=== PATIENT | male | born 1955 | race Caucasian/White ===

== ENCOUNTER → 2019-03-26 12:43 | Outpatient (CLI) | payer BC, SELFPAY ==
[2019-03-09 13:01] VITALS: BMI 27.9
--- NOTE | 2019-03-26 12:44 | CDU_ITS ---
Reason For Study: carotid stenosis Rt. Velocities/BP Lt. Velocities/BP Prox CCA 115.2/12.1 cm/sec. Prox CCA 125.3/15.7 cm/sec. Mid CCA 100.8/12.1 cm/sec. Mid CCA 118/13.9 cm/sec. Dist CCA 104.7/14.7 cm/sec. Dist CCA 96.1/13.9 cm/sec. Prox ICA 36.6/9.1 cm/sec. Prox ICA 46.1/10.4 cm/sec. Mid ICA 78.3/15.7 cm/sec. Mid ICA 95.1/20.4 cm/sec. Dist ICA 110.2/23.4 cm/sec. Dist ICA 94.0/21.5 cm/sec. Rt. ICA/CCA = 1.1. Lt. ICA/CCA = .8. Prox ECA 106.0/5.6 cm/sec. Prox ECA 68.0/7.6 cm/sec. Rt. Vert. 49.8/9.1 cm/sec. Lt. Vert. 67.7/16.0 cm/sec. Right Extracranial There is intimal thickening but no significant atherosclerotic plaque noted in the right common carotid artery. There is intimal thickening but no significant atherosclerotic plaque noted in the right internal carotid artery. There is intimal thickening but no significant atherosclerotic plaque noted in the right external carotid artery. Antegrade flow is noted in the right vertebral artery. Left Extracranial There is intimal thickening but no significant atherosclerotic plaque noted in the left common carotid artery. There is heterogeneous, smooth atherosclerotic plaque noted in the left internal carotid artery. There is intimal thickening but no significant atherosclerotic plaque noted in the left external carotid artery. Antegrade flow is noted in the left vertebral artery. Procedure Carotid Duplex [id number]. The exam was diagnostic. Exam performed in department. Interpretation Summary Mild (<50%) stenosis right extracranial internal carotid. Mild (<50%) stenosis left extracranial internal carotid. Flow within the vertebral arteries is antegrade bilaterally. Ordering Physician: Gennaro Lafleur Performed By: Skinny Tran RVT
--- NOTE | 2019-03-26 12:44 | ECHOD_ITS ---
Reason For Study: ARRHYTHMIA Procedure This was a 2D Doppler, Color Flow transthoracic echocardiogram. Exam performed in department. Left Ventricle Normal size and thickness. The estimated ejection fraction is 65 %. Stage 2 diastolic dysfunction. No regional wall motion abnormalities noted. Right Ventricle Mildly dilated right ventricle. Normal systolic function. Atria Normal left atrium. Normal right atrium. Normal atrial septum. Mitral Valve The mitral valve is structurally normal. No prolapse or stenosis seen. Tricuspid Valve Normal tricuspid valve. Trivial tricuspid valve insufficiency. Right ventricular systolic pressure estimated to be 44 mmHg. Mild pulmonary hypertension. Aortic Valve Normal aortic valve. Trisinus/trileaflet aortic valve. Pulmonic Valve Normal pulmonic valve. Trivial pulmonic valve insufficiency. Great Vessels Normal aortic root. Normal arch. Normal inferior vena cava. Inferior vena cava collapse with sniff. Pericardium/Pleural No pericardial effusion. MMode/2D Measurements & Calculations LVIDd: 5.2 cm IVSd: 0.80 cm Ao root diam: 3.1 cm LVIDs: 3.4 cm LVPWd: 0.94 cm RVDd: 3.8 cm FS: 35.4 % LAV(MOD-bp): 43.9 ml LVAd ap4: 28.0 cm2 SV(MOD-sp4): 52.4 ml LAV(MOD-bp) Indexed: 21.5 ml/m2 EDV(MOD-sp4): 88.3 ml LAV(MOD-sp2): 44.3 ml EDV(sp4-el): 89.6 ml LAV(MOD-sp4): 39.9 ml LVAs ap4: 15.9 cm2 ESV(MOD-sp4): 35.9 ml ESV(sp4-el): 35.9 ml EF(MOD-sp4): 59.3 % EF(sp4-el): 59.9 % SV(sp4-el): 53.7 ml LA A4 area: 16.1 cm2 LA dimension(2D): 3.6 cm RA A4 area: 17.5 cm2 Time Measurements MV dec time: 0.20 sec Doppler Measurements & Calculations MV E max lon: 66.4 cm/sec Lat Peak E' Lon: 12.3 cm/sec Med Peak E' Lon: 8.3 cm/sec MV A max lon: 98.2 cm/sec E/E' lat: 5.4 E/E' med: 8.0 MV E/A: 0.68 Ao V2 max: 166.9 cm/sec LV V1 max: 111.1 cm/sec PA V2 max: 133.0 cm/sec Ao max P.1 mmHg LV V1 max P.9 mmHg TR max lon: 310.3 cm/sec TR max P.7 mmHg Interpretation Summary The estimated ejection fraction is 65 %. Stage 2 diastolic dysfunction. Mildly dilated right ventricle. Trivial tricuspid valve insufficiency. Right ventricular systolic pressure estimated to be 44 mmHg. Mild pulmonary hypertension. There is no comparison study available. Ordering Physician: Gennaro Lafleur Referring Physician: Gennaro Lafleur Performed By: Adrienne Barajas RDCS
== END ==
PROVIDERS: Referring Provider Internal Medicine Cardiovascular Disease; Visit Provider Internal Medicine Cardiovascular Disease
DX: I47.2 Ventricular tachycardia (principal); I65.29 Occlusion and stenosis of unspecified carotid artery; I10 Essential (primary) hypertension; Z98.890 Other specified postprocedural states; E78.5 Hyperlipidemia, unspecified; I65.23 Occlusion and stenosis of bilateral carotid arteries
CPT/HCPCS: 93306; 93880

== ENCOUNTER → 2019-04-02 09:15 | Outpatient (CLI) | payer BC, SELFPAY ==
[2019-03-09 13:01] VITALS: BMI 27.9
--- NOTE | 2019-04-02 09:18 | STE_ITS ---
Reason For Study: ARRHYTHMIA-OTHER Stress Results Protocol: Esequiel Protocol Maximum Predicted HR: 155 bpm Target HR: 132 bpm % Maximum Predicted HR: 81 % DurationHeart Rate Stage (mm:ss) (bpm) BP Comment BASELINE 54 142/80 STAGE 1 3:00 105 144/62 STAGE 2 3:00 123 180/70LEFT HIP PAIN, NO SOB STAGE 3 0:15 126 / LEFT HIP PAIN, SOB RECOVERY 69 128/82 Stress Duration: 6:15 mm:ss Maximum Stress HR: 126 bpm Baseline Echocardiogram Findings The estimated ejection fraction is 65 %. Stress Echo Wall motion Data Resting WM Intermediate WM Stress WM Resting Wall Motion Wall Motion Stress No regional wall motion No regional wall motion abnormalities noted. abnormalities noted. EKG Data The baseline ECG displays normal sinus rhythm. The patient exercised according to the regular Esequiel protocol for a total duration of 6:15. The maximum heart rate attained was 125 beats per minute. This was 80% of maximum predicted heart rate. The patient exercised into stage 3 of the Esequiel protocol. During stress, there were no ST or T wave changes noted to suggest ischemia. No clinical angina was noted. Rate-pressure product of 22,500 mmHg.bpm. Interpretation Summary The estimated ejection fraction is 65 %. Normal, adequate, treadmill echocardiogram. Negative for ischemia by EKG and echocardiographic criteria. No anginal symptoms noted. Rare PVC and PACs noted. Appropriate blood pressure response to exercise. Average exercise capacity for age. Test terminated due to dyspnea. Final LVEF is 75%. No complications. Ordering Physician: Gennaro Lafleur Referring Physician: Gennaro Lafleur Performed By: Kristine Cruz, FRANCIE, RVT
== END ==
PROVIDERS: Referring Provider Internal Medicine Cardiovascular Disease; Visit Provider Internal Medicine Cardiovascular Disease
DX: I47.2 Ventricular tachycardia (principal); E78.5 Hyperlipidemia, unspecified; I10 Essential (primary) hypertension; I65.29 Occlusion and stenosis of unspecified carotid artery
CPT/HCPCS: 93017; 93350

== ENCOUNTER → 2019-04-20 08:49 | Outpatient (CLI) | payer BC, SELFPAY ==
[2019-03-09 13:01] VITALS: BMI 27.9
[2019-04-20 10:04] LABS: AST(SGOT) 30 U/L (15-37); Alanine Aminotransfer ALT/SGPT 42 U/L (16-61); Alkaline Phosphatase 50 U/L (45-117); Bilirubin, Direct 0.15 mg/dL (0.00-0.30); Cholesterol 188 mg/dL (200); Globulin 3.6 g/dL (2.2-4.2); High Density Lipoprotein 40 mg/dL; Protein, Total 7.6 g/dL (6.4-8.2); Triglycerides 148 mg/dL; Very Low Density Lipoprotein 30 mg/dL (5-40)
== END ==
PROVIDERS: Referring Provider Internal Medicine Cardiovascular Disease; Visit Provider Internal Medicine Cardiovascular Disease
DX: E78.00 Pure hypercholesterolemia, unspecified (principal)
CPT/HCPCS: 36415; 80061; 80076